=== PATIENT | male | born 1980 | race Two or more races ===

== ENCOUNTER 2025-08-19 08:57 | Day surgery (SDC) | payer BC, OTHER, SELFPAY ==
[2025-08-19] VITALS (11 sets, daily range): BP systolic 108–133; BP diastolic 67–85; PULSE 69–85; RESP 12–21; TEMP 36.7–37; O2SAT 95–98; BMI 28.2
[2025-08-19] MEDS: MIDAZOLAM INJ 1 MG/ML VIAL 2 ML (ASD USE ONLY) 2 MG IVP (11:43)
[2025-08-19] MEDS: SODIUM CHLORIDE 0.9% 500 ML 500 ML 20 ML IV (11:43)
[2025-08-19] MEDS: fentaNYL CIT INJ 50 mCg/ML AMP 2ML (ASD USE ONLY) IVP (11:43)
--- NOTE | 2025-08-19 12:54 | SUR.PHASEII ---
1234 Pt assessment unchanged. No complaints. Abd remains soft. Elizabet PO fluids. Amb with steady gait. Able to dress self. Pt and given DC instructions both state understanding. Pt meets dc criteria-to home.
== END 2025-08-19 12:34 | disposition home or self-care (01) ==
PROVIDERS: PCP Family Medicine; Referring Provider Specialist; Visit Provider Specialist
PROC: 0DBE8ZX Excision of Large Intestine, Via Natural or Artificial Opening Endoscopic, Diagnostic (ICD-10-PCS; CPT 45380; principal; 2025-08-19 13:00)
DX: D12.3 Benign neoplasm of transverse colon (principal); K64.9 Unspecified hemorrhoids; K57.30 Diverticulosis of large intestine without perforation or abscess without bleeding; R19.5 Other fecal abnormalities
CPT/HCPCS: 45385; A4649; J1200; J2250; J3010; J7999